=== PATIENT | male | born 1960 | race Caucasian/White ===

== ENCOUNTER → 2018-01-14 | Outpatient (CLI) | payer BC ==
--- NOTE | 2018-01-14 17:22 | CT ---
EXAMINATION TYPE: CT heart w calcium score DATE OF EXAM: 01/14/2018 COMPARISON: HISTORY: Screening for cardiovascular disorder. 213.9 CT DLP: 70.2 mGycm Automated exposure control for dose reduction was used. CT CALCIUM SCORING Coronary calcium is a marker for plaque (fatty deposits) in a blood vessel or atherosclerosis (harden ing of the arteries). The presence and amount of calcium detected in a coronary artery by the CT sca n, indicates the presence and amount of atherosclerotic plaque. These calcium deposits appear years before the development of heart disease symptoms such as chest pain and shortness of breath. A calcium score is computed for each of the coronary arteries based upon the volume and density of th e calcium deposits. This can be referred to as your calcified plaque burden. It does not correspond directly to the percentage of narrowing in the artery but does correlate with the severity of the un derlying coronary atherosclerosis. PROCEDURE TECHNIQUE - Prospective Gating was used. Slice thickness: 3mm. Density threshold (HU): 130, Pixel threshold: 3, Algorithm: discrete. RESULTS: Incidental note made of hypodensities within the liver of varying sizes Region: LM Calcium Score ([place]): 0 Volume (mm3): Mass (g): Region: RCA Calcium Score ([place]): 0 Volume (mm3): Mass (g): Region: LAD Calcium Score ([place]): 13 Volume (mm3): 20 Mass (g): Region: CX Calcium Score ([place]): 2 Volume (mm3): 5 Mass (g): Region: PDA Calcium Score ([place]): 2 Volume (mm3): 3 Mass (g): Total: Calcium Score ([place]at[place]): 17 Volume (mm3): 28 Mass (g): TOTAL CALCIUM SCORE: 17 IMPRESSION: Calcium Score: 11-100 Implication: Definite, at least mild atherosclerotic plaque Risk of Coronary Artery Disease: Mild or minimal coronary narrowings likely. Follow-up recommended. Follow-up for indeterminate lesions within the liver.
== END | disposition home or self-care (01) ==
LOC: RADCTMAIN 15:15
PROVIDERS: ATTEND Internal Medicine
DX: I25.10 Atherosclerotic heart disease of native coronary artery without angina pectoris (principal); I10 Essential (primary) hypertension; E78.5 Hyperlipidemia, unspecified
CPT/HCPCS: 75571

== ENCOUNTER → 2020-04-26 | Outpatient (CLI) | payer BC | END | disposition home or self-care (01) | LOC: LABWHC1 12:57 | PROVIDERS: ATTEND Family Medicine | DX: U07.1 COVID-19 (principal); R05 Cough | CPT/HCPCS: U0003; C9803 ==

== ENCOUNTER 2021-08-18 08:52 | Day surgery (SDC) | payer BC ==
[2021-08-14 13:31] VITALS: BMI 36.4
--- NOTE | 2021-08-16 15:15 | P.HPIHPCON ---
History of Present Illness H&P Date: 08/16/21 Chief Complaint: BPH this is a 61-year-old male with history of BPH, patient failed medical therapy. Discussed with him the option of transurethral resection of the prostate versus a urolift. He indicated he wants to proceed with the procedure that maintains ejaculation. Discussed with him that urolift would be the preferred approach. Discussed with him the risk of the operation which includes but not limited to bleeding, infection, urinary incontinence, persistent symptoms, discussed with him even with the relief of his obstruction there is a potential that he will have persistent overactive bladder symptoms. Discussed with him also risk from anesthesia. He understood all the risk and agree to proceed Consent for Procedure: I have explained the operation/procedure to the patient, including the risks, benefits, side effects, alternative therapies (including not receiving the proposed treatment or service), the likelihood of the patient achieving his/her goals, and potential recuperation problems for the procedure/sedation/analgesia, as well as any blood products, if indicated. I also explained to the patient the risks, benefits and side effects of the alternatives, as well as the risks related to not receiving the proposed procedure, care, treatment, or services. Past Medical History Past Medical History: Eye Disorder, GERD/Reflux, Hearing Disorder / Deafness, Hyperlipidemia, Prostate Disorder Additional Past Medical History / Comment(s): Borderline DM, HTN. Hx Narrow angle bilat eyes. Hearing aids. BPH. Sleeps w/ wedge pillow D/T GERD. History of Any Multi-Drug Resistant Organisms: None Reported Additional Past Surgical History / Comment(s): [place] teeth. Colonoscopy Past Anesthesia/Blood Transfusion Reactions: No Reported Reaction Smoking Status: Never smoker - Past Family History Father Family Medical History: Cancer Additional Family Medical History / Comment(s): prostate cancer, hx phebitis in arm Medications and Allergies Home Medications Medication Instructions Recorded Confirmed Type Atorvastatin [Lipitor] 10 mg PO DAILY 08/14/21 08/14/21 History Azelastine HCl [Astepro] 1 spray NASAL BID 08/14/21 08/14/21 History Fish Oil (Unknown Dose) 1 tab PO DAILY 08/14/21 History Multivitamins, Thera [Multivitamin 1 tab PO DAILY 08/14/21 08/14/21 History (formulary)] Omeprazole/Sodium Bicarbonate 1 each PO HS 08/14/21 08/14/21 History [Omeprazole-Bicarb 20-1,100 Cap] Sildenafil Citrate [Viagra] 50 mg PO ONCE PRN 08/14/21 08/14/21 History Tamsulosin HCl [Flomax] 0.8 mg PO DAILY 08/14/21 08/14/21 History Allergies Allergy/AdvReac Type Severity Reaction Status Date / Time No Known Allergies Allergy Verified 08/14/21 13:03 Surgical - Exam - General no distress, no pain - Eyes normal ocular movement, no pale - ENT normal nares, normal mucosa - Respiratory normal expansion, normal respiratory effort - Abdomen Abdomen: soft, non tender - Psychiatric oriented to time, oriented to person, oriented to place Assessment and Plan Assessment: OR for urolift
[~2021-08-18 08:52] MED LIST: DEXAMETHASONE SOD PHOSPHATE 4 MG/ML 1 ML VIAL IV ONE; HYDROmorphone 0.5 MG/0.5 ML SYRINGE IVP PRN; LACTATED RINGERS 1,000 ML IV SCH; MIDAZOLAM 2 MG/2 ML VIAL IV PRN; ONDANSETRON 4 MG/2 ML VIAL IVP ONE; SCOPOLAMINE 1 MG/72 HR PATCH TRANSDERM ONE
[2021-08-18 09:27] VITALS: TEMP 97.1
[2021-08-18 09:53] LABS: Glucose,Whole Blood 154 mg/dL (75-99)
[2021-08-18] MEDS ORDERED: fentaNYL (PF) 50 MCG/ML 2 ML AMP ONE (11:26)
[2021-08-18] MEDS ORDERED: MIDAZOLAM 2 MG/2 ML VIAL ONE (11:26)
[2021-08-18] MEDS ORDERED: PROPOFOL 10 MG/ML 20 ML VIAL IV ONE (11:26)
--- NOTE | 2021-08-18 12:23 | P.OP ---
Date of Procedure: 08/18/21 Preoperative Diagnosis: BPH Postoperative Diagnosis: Same Procedure(s) Performed: Cystoscopy, urolift 4 Implants: Urolift implants in the prostate 4 Anesthesia: LYNDAA Surgeon: Slava Aldana Estimated Blood Loss (ml): 20 Pathology: none sent Condition: stable Disposition: PACU Indications for Procedure: This is a 61-year-old male with history of BPH, patient failed medical therapy. Discussed with him the option of transurethral resection of the prostate versus a urolift. He indicated he wants to proceed with the procedure that maintains ejaculation. Discussed with him that urolift would be the preferred approach. Discussed with him the risk of the operation which includes but not limited to bleeding, infection, urinary incontinence, persistent symptoms, discussed with him even with the relief of his obstruction there is a potential that he will have persistent overactive bladder symptoms. Discussed with him also risk from anesthesia. He understood all the risk and agree to proceed Description of Procedure: Patient was brought to the operating room, general anesthesia was induced. He was prepped and draped in sterile fashion and placed in dorsal lithotomy position. Cystoscopy fitted with 20-Namibian sheath was inserted per urethra, cystoscopy was performed which showed no abnormality within the bladder, of note patient had bilateral obstructive lateral lobes. Attention was then carried to the urolift implants. A total of 4 implants were placed, 2 on the right side, and 2 on the left side. Implants were placed distal to the bladder neck, but proximal to the Veru. Repeat cystoscopy showed no evidence of implant perforation into the bladder. Repeat cystoscopy also demonstrated an open anterior channel within the prostate. There was some evidence of prosthetic back bleeding, thus a 16-N[place]ib[place] Bradford catheter was placed. Bradford was irrigated to clear. Patient tolerated the procedure well was taken to PACU in stable condition
[2021-08-18] MEDS ORDERED: KETOROLAC 15 MG/ML 1 ML VIAL IVP ONE (12:40)
[2021-08-18 13:15] VITALS: RESP 20
[2021-08-18 13:56] VITALS: BP 121/74; PULSE 74
== END 2021-08-18 14:09 | disposition home or self-care (01) ==
LOC: OR 08:52
PROVIDERS: ATTEND Urology
DX: N40.0 Benign prostatic hyperplasia without lower urinary tract symptoms (principal); E78.5 Hyperlipidemia, unspecified; K21.9 Gastro-esophageal reflux disease without esophagitis; Z79.899 Other long term (current) drug therapy; I10 Essential (primary) hypertension; R73.03 Prediabetes
CPT/HCPCS: 52000; L8699; J2250; J1100; J0690; J2405; J3010; J1885; J2704; J1170

== ENCOUNTER → 2021-09-16 | Outpatient (CLI) | payer BC ==
--- NOTE | 2021-09-16 14:51 | XR ---
EXAMINATION TYPE: XR KUB DATE OF EXAM: 09/16/2021 COMPARISON: NONE HISTORY: Right flank pain TECHNIQUE: One view abdominal series FINDINGS: The osseous structures are intact. The bowel gas pattern is nonspecific. Lung bases are clear. Hyper trophic arthropathy of the hips correlate for femoral acetabular. Postsurgical changes suggesting pel vis. No suspicious calcifications overlying the renal outlines or within the pelvis. IMPRESSION: 1. Nonspecific abdomen. No suspicious calcifications identified.
== END | disposition home or self-care (01) ==
LOC: RADXRWHC 14:22
PROVIDERS: ATTEND Urology
DX: R10.9 Unspecified abdominal pain (principal)
CPT/HCPCS: 74018